=== PATIENT | male | born 1985 | race Caucasian/White ===

== ENCOUNTER 2018-03-28 09:56 | Emergency (ER) | END 2018-03-28 14:28 | disposition home or self-care (01) ==

== ENCOUNTER 2018-03-31 10:59 | Emergency (ER) | END 2018-03-31 12:50 | disposition home or self-care (01) ==

== ENCOUNTER 2018-04-02 09:15 | Emergency (ER) | END 2018-04-02 09:42 | disposition home or self-care (01) ==